=== PATIENT | male | born 1985 | race African-American/Black ===

== ENCOUNTER 2017-12-28 20:37 | Emergency (ER) | payer OTHER ==
[~2017-12-28] VITALS: Ht 175.3 cm; Wt 68.6 kg
[2017-12-28 21:30] LABS: HEMATOCRIT 37.7 % (38.0-50.0); HEMOGLOBIN 13.2 G/DL (12.5-16.6); MCH 30.1 PG (29.0-34.0); MCV 85.9 FL (86-99); PLATELET COUNT 139 K/uL (156-360); RBC DIS.WIDTH-CV 12.9 % (11.8-14.6); RBC DIS.WIDTH-SD 40.2 % (39-53); RED BLOOD COUNT 4.39 M/uL (4.00-5.50); WHITE BLOOD COUNT 4.4 K/uL (4.1-10.2)
[2017-12-28 21:30] LABS: APPEARANCE SL.HAZY ((CLEAR)); BILIRUBIN NEGATIVE; BLOOD NEGATIVE; COLOR YELLOW ((YELLOW)); GLUCOSE (STRIP) NEGATIVE; KETONES NEGATIVE; LEUKOCYTES SMALL; NITRITE NEGATIVE; PROTEIN (STRIP) NEGATIVE; SPECIFIC GRAVITY 1.027 (1.000-1.030)
[2017-12-28 21:43] LABS: ALBUMIN 3.9 g/dL (3.2-4.8); CHLORIDE 106 mEq/L (99-109); SODIUM 141 mEq/L (136-147)
[2017-12-28 21:45] LABS: GLUCOSE 88 mg/dL (70-99)
[2017-12-28 21:47] LABS: TOTAL BILIRUBIN 0.3 mg/dL (0.0-1.0)
[2017-12-28 21:49] LABS: ALKALINE PHOSPHATASE 64 IU/L (3-129); GFR ESTIMATE (CALCULATED) > 59 mL/min/ (58.99-99999)
[2017-12-28 21:50] LABS: UREA NITROGEN (BUN) 15 mg/dL (9-23)
[2017-12-28 21:52] LABS: ALT (GPT) 14 IU/L (3-49); AST (GOT) 14 IU/L (2-34)
[2017-12-28 22:06] LABS: RED BLOOD CELLS NONE SEEN /HPF (0-5)
[2017-12-28 22:07] LABS: BACTERIA RARE /HPF; EPITHELIAL CELLS RARE /HPF; MUCUS 3+ /LPF; UCUL ADDED? YES
[2017-12-28 22:07] LABS: LIPASE 13 U/L (1.0-51.0)
[2017-12-28 22:09] LABS: CALCIUM OXALATE CRYSTALS 1+ /HPF
[2017-12-29] MEDS ORDERED: ULTRACET1 TABLET PO (00:11)
[2017-12-29] MEDS ORDERED: ZOFRAN ODT4 MG PO (00:11)
[2017-12-29 00:22] VITALS: BP 102/56
== END 2017-12-29 00:33 | disposition home or self-care (01) ==
LOC: RME 20:37 → EME 20:37 → RME 12-29 00:33
DX: R10.9 Unspecified abdominal pain (principal); R11.2 Nausea with vomiting, unspecified; R19.7 Diarrhea, unspecified; F17.200 Nicotine dependence, unspecified, uncomplicated; Z88.2 Allergy status to sulfonamides
CPT/HCPCS: 74177; 80053; 81003; 83690; 85027; 87086; 87177; 87506; J1885; J2405; J7030

== ENCOUNTER 2018-01-04 22:13 | Emergency (ER) | payer OTHER ==
[~2018-01-04] VITALS: Ht 175.3 cm; Wt 75.5 kg
[~2018-01-04 22:13] MED LIST: ULTRACET1 TABLET PO; ZOFRAN ODT4 MG PO
[2018-01-04 23:25] LABS: HEMATOCRIT 36.7 % (38.0-50.0); HEMOGLOBIN 12.7 G/DL (12.5-16.6); MCH 29.7 PG (29.0-34.0); MCHC 34.6 G/DL (30.0-36.0); MCV 85.9 FL (86-99); RBC DIS.WIDTH-SD 40.8 % (39-53); RED BLOOD COUNT 4.27 M/uL (4.00-5.50); WHITE BLOOD COUNT 3.5 K/uL (4.1-10.2)
[2018-01-04 23:29] LABS: ALBUMIN 4.1 g/dL (3.2-4.8); CHLORIDE 101 mEq/L (99-109); POTASSIUM 3.8 mEq/L (3.7-5.4); SODIUM 135 mEq/L (136-147)
[2018-01-04 23:31] LABS: GLUCOSE 100 mg/dL (70-99)
[2018-01-04 23:33] LABS: TOTAL BILIRUBIN 0.3 mg/dL (0.0-1.0)
[2018-01-04 23:35] LABS: ALKALINE PHOSPHATASE 63 IU/L (3-129); CREATININE 0.9 mg/dL (0.6-1.3); GFR ESTIMATE (CALCULATED) > 59 mL/min/ (58.99-99999)
[2018-01-04 23:36] LABS: UREA NITROGEN (BUN) 15 mg/dL (9-23)
[2018-01-04 23:37] LABS: AST (GOT) 15 IU/L (2-34)
[2018-01-04 23:38] LABS: ALT (GPT) 13 IU/L (3-49)
[2018-01-04 23:41] LABS: TROP-I INTERPRETATION NEGATIVE; TROPONIN-I < 0.01 ng/mL (0.0-0.30)
[2018-01-05 01:20] LABS: PLAT.SUFFICIENCY DECREASED; PLATELET COUNT 137 K/uL (156-360)
[2018-01-05 01:40] VITALS: BP 121/68
== END 2018-01-05 01:41 | disposition home or self-care (01) ==
LOC: EME → EDBD 22:13 → EME 22:13
PROVIDERS: Physician Assistant
DX: F16.10 Hallucinogen abuse, uncomplicated (principal); R07.9 Chest pain, unspecified; F17.200 Nicotine dependence, unspecified, uncomplicated; Z88.2 Allergy status to sulfonamides
CPT/HCPCS: 71046; 80053; 84484; 85027; 93005; 99281; 99284